=== PATIENT | female | born 1985 | race African-American/Black ===

== ENCOUNTER 2017-09-14 00:37 | Emergency (ER) | payer SELFPAY ==
[~2017-09-14] VITALS: Ht 152.4 cm; Wt 78.9 kg
[2017-09-14 00:45] VITALS: Ht 152.4 cm; Wt 78.9 kg
[2017-09-14 02:29] LABS: BASOPHIL % 1.4 % (0-2); RED CELL DISTRIBUTION WIDTH 12.9 % (11.5-14.5)
[2017-09-14 02:30] LABS: PLATELET COUNT 439 x10^3mcL (130-400)
[2017-09-14 02:34] LABS: CALCIUM 8.6 mg/dL (8.5-10.1); CARBON DIOXIDE 26.3 mmol/L (21-32); CHLORIDE SERUM 104 mmol/L (98-107); CREATININE SERUM 0.9 mg/dL (0.6-1.0); GFR1 > 60 mL/min; GLUCOSE SERUM 118 mg/dL (74-106); POTASSIUM SERUM 3.4 mmol/L (3.5-5.1); SODIUM SERUM 140 mmol/L (136-145)
[2017-09-14 02:48] LABS: ALBUMIN 3.4 g/dL (3.4-5.0); ALKALINE PHOSPHATASE 67 U/L (46-116); ALT/SGPT 18 U/L (14-59); AST/SGOT 18 U/L (15-37); BILIRUBIN TOTAL 0.15 mg/dL (0.20-1.00); TOTAL PROTEIN, SERUM 7.4 g/dL (6.4-8.2)
[2017-09-14 04:48] LABS: FREE T4 1.06 ng/dL (0.76-1.46); FREE THYROXINE INDEX 2.9 ug/dL (1.4-4.5); T4(THYROXINE) 8.3 ug/dL (4.7-13.3)
[2017-09-14 04:50] LABS: T3 TOTAL 1.32 ng/mL
[2017-09-14 04:57] LABS: microscopic required? NO
[2017-09-14 05:11] LABS: CHOLESTEROL/HDL RATIO 3.9; MAGNESIUM 1.8 mg/dL (1.8-2.4); PHOSPHOROUS 2.4 mg/dL (2.5-4.9)
[2017-09-14 05:21] LABS: UA SPECIFIC GRAVITY 1.025 (1.005-1.035); urine erythrocyte NEGATIVE (NEGATIVE)
[2017-09-14 07:31] LABS: BASOPHIL % 0.2 % (0-2); RED CELL DISTRIBUTION WIDTH 13.9 % (11.5-14.5)
[2017-09-14 07:37] LABS: PLATELET COUNT 408 x10^3mcL (130-400)
[2017-09-14 08:21] VITALS: BP 134/92
== END 2017-09-14 08:21 | disposition home or self-care (01) ==
LOC: ED 00:37
PROVIDERS: Emergency Medicine; Family Medicine
DX: O20.9 Hemorrhage in early pregnancy, unspecified (principal); K62.5 Hemorrhage of anus and rectum; Z3A.00 Weeks of gestation of pregnancy not specified
CPT/HCPCS: 36415; 83880; 84439

== ENCOUNTER 2020-04-19 21:11 | Emergency (ER) | payer SELFPAY ==
[~2020-04-19] VITALS: Ht 152.4 cm; Wt 75.9 kg
[2020-04-19 21:17] VITALS: Ht 152.4 cm; Wt 75.9 kg
[2020-04-19 23:12] LABS: BASOPHIL % 0.7 % (0-2); PLATELET COUNT 374 x10^3mcL (130-400)
[2020-04-19 23:21] LABS: RED CELL DISTRIBUTION WIDTH 15.3 % (11.5-14.5)
[2020-04-19 23:25] LABS: microscopic required? YES; urine erythrocyte 3+ (NEGATIVE)
[2020-04-20 00:15] VITALS: BP 115/68
== END 2020-04-20 00:15 | disposition home or self-care (01) ==
LOC: ED 21:11
PROVIDERS: Student in an Organized Health Care Education/Training Program
DX: O03.9 Complete or unspecified spontaneous abortion without complication (principal)
CPT/HCPCS: Q0092